=== PATIENT | male | born 1965 | race Caucasian/White ===

== ENCOUNTER 2023-07-02 14:21 | Emergency (ER) | payer BC ==
[~2023-07-02] VITALS: Ht 182.9 cm; Wt 99.8 kg
[2023-07-02 14:33] VITALS: O2SAT 97
[2023-07-02] MEDS ORDERED: METO-356 PO (14:41)
[2023-07-02] MEDS ORDERED: ASPI81TA31 PO (14:41)
[2023-07-02] MEDS ORDERED: IBUPROFEN 800 MG TABLET ONE (15:22)
[2023-07-02] MEDS ORDERED: IBUPROFEN 800 MG TABLET PO ONE (15:30)
[2023-07-02] MEDS ORDERED: ACET1TAB23 PO (15:59)
[2023-07-02] MEDS ORDERED: ONDA4TAB5 PO (15:59)
== END 2023-07-02 16:07 | disposition home or self-care (01) ==
LOC: ER 14:27
DX: S40.012A Contusion of left shoulder, initial encounter (principal); S09.90XA Unspecified injury of head, initial encounter; Z79.82 Long term (current) use of aspirin; Z79.899 Other long term (current) drug therapy; V43.52XA Car driver injured in collision with other type car in traffic accident, initial encounter; Y93.89 Activity, other specified; Y92.410 Unspecified street and highway as the place of occurrence of the external cause; Y99.8 Other external cause status
CPT/HCPCS: 73030; A4606; A4663